=== PATIENT | female | born 1985 | race Caucasian/White ===

== ENCOUNTER 2016-10-02 09:33 | Emergency (ER) | payer OTHER ==
[2016-10-02 10:25] VITALS: BP 107/63
--- NOTE | 2016-10-02 11:50 | UC ---
FLU HPI - HPI Summary HPI Summary: cough, fevers, chills, body aches, for 24 hours---table runner suggested Tylenol 1, 00mg 4 times a day and robitussin dm---concerned because cough is worse---2 y/o daughter with similar sx----24 weeks - History of Current Complaint Chief Complaint: UCGeneralIllness Stated Complaint: FLU SYMPTOMS Time Seen by Provider: 10/02/16 11:44 Hx Obtained From: Patient ?: Yes Onset/Duration: Sudden Onset, Lasting Days - 1 Severity Currently: Moderate Severity Initially: Moderate Pain Intensity: 8 Pain Scale Used: 0-10 Numeric Associated Signs & Symptoms: Positive: Fever, Myalgia, Cough, Nasal Congestion, Headache Related Hx: Possible Flu/Infectious Exposure - daughter with influenza - Allergy/Home Medications Allergies/Adverse Reactions: Allergies Allergy/AdvReac Type Severity Reaction Status Date / Time Seasonal Allergy Congestion Uncoded 10/02/16 10:25 Home Medications: Home Medications Acetaminophen TAB* [Tylenol TAB*] 3 tab PO PRN 10/02/16 [History] PMH/Surg Hx/FS Hx/Imm Hx Previously Healthy: No Endocrine History Of: Reports: Thyroid Disease Denies: Diabetes Cardiovascular History Of: Reports: Hypertension - history of Denies: Cardiac Disorders Respiratory History Of: Denies: COPD, Asthma GI/ History Of: Denies: Ulcer - Surgical History Surgical History: Yes Surgery Procedure, Year, and Place: Oral surgery 2001. Tubes in ears 1988 - Family History Known Family History: Positive: None Family History: no reported issues in family lineage - Social History Lives: With Family Alcohol Use: None Substance Use Type: None Smoking Status (MU): Never Smoked Tobacco Have You Smoked in the Last Year: No - Immunization History Most Recent Influenza Vaccination: not this season Most Recent Tetanus Shot: Within 2 years Most Recent Pneumonia Vaccination: Never had Review of Systems Constitutional: Fever, Chills, Fatigue Skin: Negative Eyes: Negative ENT: Negative Respiratory: Shortness Of Breath - "always when prgenant", Cough Cardiovascular: Negative Gastrointestinal: Negative Genitourinary: Negative Motor: Negative Neurovascular: Negative Musculoskeletal: Arthralgia, Myalgia Neurological: Headache Psychological: Negative All Other Systems Reviewed And Are Negative: Yes Physical Exam Triage Information Reviewed: Yes Appearance: Well-Nourished, Ill-Appearing, Pain Distress Vital Signs: Initial Vital Signs Temp 99 F 10/02/16 10:18 Pulse 118 10/02/16 10:18 Resp 20 10/02/16 10:18 BP 107/63 10/02/16 10:18 Pulse Ox 100 10/02/16 10:18 Vital Signs Reviewed: Yes Eye Exam: Normal Eyes: Positive: Conjunctiva Clear ENT Exam: Normal ENT: Positive: Normal ENT inspection, Hearing grossly normal, Pharynx normal, Nasal congestion, TMs normal. Negative: Nasal drainage, Tonsillar swelling, Tonsillar exudate, Trismus, Muffled/hoarse voice Dental Exam: Normal Neck exam: Normal Neck: Positive: Supple, Nontender Respiratory Exam: Normal Respiratory: Positive: Chest non-tender, Lungs clear, Normal breath sounds, No respiratory distress, No accessory muscle use, Respiratory distress Cardiovascular Exam: Normal Cardiovascular: Positive: No Murmur, Pulses Normal, Brisk Capillary Refill, Tachycardia Musculoskeletal Exam: Normal Musculoskeletal: Positive: Strength Intact, ROM Intact, No Edema Neurological Exam: Normal Neurological: Positive: Alert, Muscle Tone Normal Psychological Exam: Normal Skin Exam: Normal - Additional Comments Heart Rate 150 Diagnostics - Laboratory Diagnostic Studies Completed/Ordered: influenza A (+) Re-Evaluation - Re-Evaluation First Eval Change: Unchanged - reviewed case with [employer] [facility] Plan Tamiflu , Tylenol, Robitussin, Albuterol, Follow at office begining of next week Flu Course/Dx - Course Course Of Treatment: tamiflu, tylenol, robitussin, albuterol, rest, increase fluids, follow with [facility] early next week - Differential Dx/Diagnosis Differential Diagnosis/HQI/PQRI: Influenza, Pneumonia, RSV, Upper Respiratory Infection Provider Diagnoses: influenza A Discharge - Discharge Plan Condition: Stable Disposition: HOME Prescriptions: Albuterol HFA INHALER* [Ventolin HFA Inhaler*] 2 puff INH Q6H PRN #1 mdi PRN Reason: cough/chest congestion Oseltamivir CAP* [Tamiflu CAP*] 75 mg PO BID #10 cap Patient Education Materials: How to Use a Metered-Dose Inhaler (ED), Influenza (ED) Referrals: Santa Shoemaker MD [Medical Doctor] - 5 Days Ricky Aaron NP [Primary Care Provider] -
== END 2016-10-02 12:03 | disposition home or self-care (01) ==
LOC: UCEAST 09:33
DX: J10.1 Influenza due to other identified influenza virus with other respiratory manifestations (principal)
CPT/HCPCS: 87502; 99212; G0463

== ENCOUNTER 2017-02-14 18:14 | Emergency (ER) | payer OTHER, MEDICAID ==
[2017-02-14 18:27] VITALS: BP 136/71
[2017-02-14] MEDS ORDERED: Cephalexin CAP* 500 MG PO ONE ×2 (18:47→18:48)
--- NOTE | 2017-02-14 18:50 | UC ---
Breast Complaint - HPI Summary HPI Summary: currently nursing a toddler and , has had 24 hours of left breat pain about 9 o'clock, no cracked nipples, now is feeling body aches - History of Current Complaint Hx Obtained From: Patient Breast Chief Complaint: Pain, Breast, Left Onset/Duration: Started Hours Ago, Still Present Timing: Constant Breast Pain Alleviating Factors: Breast Feeding Breast Associated Signs/Symptoms: Fever - subjective, Warmth - Allergy/Home Medications Allergies/Adverse Reactions: Allergies Allergy/AdvReac Type Severity Reaction Status Date / Time Seasonal Allergy Congestion Uncoded 10/02/16 10:25 Home Medications: Home Medications Ibuprofen [Advil] 600 mg PO 02/14/17 [History] PMH/Surg Hx/FS Hx/Imm Hx Previously Healthy: No Endocrine History: Hypothyroidism - Surgical History Surgical History: Yes Surgery Procedure, Year, and Place: Oral surgery 2001. Tubes in ears 1988 - Family History Known Family History: Positive: None Family History: no reported issues in family lineage - Social History Occupation: Employed Full-time Lives: With Family Alcohol Use: None Substance Use Type: None Smoking Status (MU): Never Smoked Tobacco Have You Smoked in the Last Year: No - Immunization History Most Recent Influenza Vaccination: not this season Most Recent Tetanus Shot: Within 2 years Most Recent Pneumonia Vaccination: Never had Review of Systems Constitutional: Fever, Chills, Fatigue Skin: Negative, Other - warmth left breat about 9;00 and tenderness Eyes: Negative ENT: Negative Respiratory: Negative Cardiovascular: Negative Gastrointestinal: Negative Genitourinary: Negative Motor: Negative Neurovascular: Negative Musculoskeletal: Negative Neurological: Negative Psychological: Negative All Other Systems Reviewed And Are Negative: Yes Physical Exam Triage Information Reviewed: Yes Appearance: Well-Nourished, Ill-Appearing, Pain Distress Vital Signs: Initial Vital Signs Temp 99.0 F 02/14/17 18:24 Pulse 113 02/14/17 18:24 Resp 18 02/14/17 18:24 BP 136/71 02/14/17 18:24 Pulse Ox 98 02/14/17 18:24 Vital Signs Reviewed: Yes Eye Exam: Normal Eyes: Positive: Conjunctiva Clear ENT Exam: Normal ENT: Positive: Normal ENT inspection, Hearing grossly normal, TMs normal. Negative: Nasal congestion, Nasal drainage, Tonsillar swelling, Tonsillar exudate, Trismus, Muffled/hoarse voice Dental Exam: Normal Neck exam: Normal Neck: Positive: Supple, Nontender, No Lymphadenopathy Respiratory Exam: Normal Respiratory: Positive: Chest non-tender, Lungs clear, Normal breath sounds, No respiratory distress, No accessory muscle use Cardiovascular Exam: Normal Cardiovascular: Positive: Pulses Normal, Brisk Capillary Refill, Tachycardia Abdominal Exam: Normal Musculoskeletal Exam: Normal Musculoskeletal: Positive: Strength Intact, ROM Intact, No Edema Neurological Exam: Normal Neurological: Positive: Alert, Muscle Tone Normal Psychological Exam: Normal Skin Exam: Normal Breast Pain Course/Dx - Course Assessment/Plan: warm compress, continue to breast feed, keflex qid for 7 days, increase fluids, follow with pcp this week - Differential Diagnoses Differential Diagnosis/HQI/PQRI: Breast Abscess, Candidia Dermatitis, Fibrocystic Breast Disease, Mastitis - Diagnoses Provider Diagnoses: breast feeding induced mastitis (L) Discharge - Discharge Plan Condition: Stable Disposition: HOME Prescriptions: Cephalexin CAP* [Keflex CAP*] 500 mg PO QID #26 cap Patient Education Materials: and Plugged Ducts (ED), Mastitis (ED ) Referrals: Ricky Aaron NP [Primary Care Provider] - If Needed
== END 2017-02-14 19:00 | disposition home or self-care (01) ==
LOC: UCEAST 18:14
DX: E03.9 Hypothyroidism, unspecified (principal); N61.0 Mastitis without abscess
CPT/HCPCS: 99212; A9270-GY; G0463